=== PATIENT | female | born 2000 | race African-American/Black ===

== ENCOUNTER 2024-11-09 20:21 | Emergency (ER) | payer SELFPAY ==
[2024-11-09] MEDS ORDERED: Lidocaine 1% w/Epinephrine 1:200K 30 ML VIAL ONE (21:32)
[2024-11-09] MEDS ORDERED: Bacitracin 1 PK ONE (23:14)
== END 2024-11-09 23:15 | disposition home or self-care (01) ==
LOC: CSHERS 20:21
DX: S61.512A Laceration without foreign body of left wrist, initial encounter (principal); X99.1XXA Assault by knife, initial encounter
CPT/HCPCS: 12002; 99282